=== PATIENT | male | born 1950 | race Caucasian/White ===

== ENCOUNTER 2020-02-19 20:23 | Inpatient (IN) | payer MEDICARE, OTHER ==
[2020-02-19] MEDS ORDERED: Lidocaine 2% HCl 11 ML Jelly Filled Syringe MUCMEM ONE (20:31)
--- NOTE | 2020-02-19 20:37 | EDM.PDOC ---
ED HPI GENERAL MEDICAL PROBLEM - General Stated Complaint: POST SURG ISSUE Time Seen by Provider: 02/19/20 20:34 Source of Information: Reports: Patient History Limitations: Reports: No Limitations - History of Present Illness INITIAL COMMENTS - FREE TEXT/NARRATIVE: Patient comes emergency department today with his with concerns of urinary retention. The patient was discharged from [facility] today following a bladder procedure that he had done yesterday that he relates was a bladder scraping due to hematuria. He left about noon today when they pulled out his catheter but still had blood in his Cardozo. He has not urinated since that time. He has had increasing pain and pressure and he is not even have any dribble of urination. He has no fever or chills. No other abdominal pain other than suprapubic pressure and spasms. He did get seen in the clinic this afternoon and had a scan that showed about 175 mils he was told to go home drink more fluid. That was about 4 or 5:00. He has had 40 ounces of water since that time and he has been unable to void and is pressure keeps getting worse. - Related Data Allergies Allergy/AdvReac Type Severity Reaction Status Date / Time No Known Allergies Allergy Verified 10/22/18 10:58 Home Meds: Home Meds Lisinopril/Hydrochlorothiazide [Zestoretic 10-12.5 mg Tablet] 1 each PO DAILY [History] Oxybutynin Chloride [Ditropan Xl] 10 mg PO DAILY 10/22/18 [History] metroNIDAZOLE/Skin Cleansr #23 [[place] 0.75% Cream] 1 applic TOP BID 10/22/18 [ History] Past Medical History Cardiovascular History: Reports: Hypertension Gastrointestinal History: Reports: Colon Polyp Genitourinary History: Reports: Prostate Disorder Oncologic (Cancer) History: Reports: Prostate Dermatologic History: Reports: Other (See Below) Other Dermatologic History: [place] - Past Surgical History GI Surgical History: Reports: Colonoscopy, Hernia Repair/Other Other GI Surgeries/Procedures: Tubulovillous adenoma of colon. Right inguinal hernia Male Surgical History: Reports: Prostate Biopsy ED ROS GENERAL - Review of Systems Review Of Systems: Comprehensive ROS is negative, except as noted in HPI. ED EXAM, RENAL/ - Physical Exam Exam: See Below Exam Limited By: No Limitations General Appearance: Alert, WD/WN, Mild Distress Respiratory/Chest: No Respiratory Distress Cardiovascular: Normal Peripheral Pulses, Regular Rate, Rhythm GI/Abdominal: Normal Bowel Sounds, Soft, Tender (He does have a well-healed midline very old appearing surgical incision. Suprapubic region he has some mild tenderness without guarding or rebound. The rest of the abdomen is soft nontender.) Rectal (Males) Exam: Deferred Back Exam: Normal Inspection Extremities: Normal Inspection, Normal Capillary Refill Neurological: Alert, Oriented, Normal Cognition, Sensory/Motor Deficit Psychiatric: Normal Affect Skin Exam: Warm, Dry, Intact, Normal Color, No Rash Course - Orders/Labs/Meds Orders: Active Orders 24 hr Category Date Time Status Cardozo Catheter Insertion [Insert Urinary Catheter] [OM. Care 02/19/20 20:45 Ordered PC] Q24H Urinary Catheter Assessment [RC] ASDIRECTED Care 02/19/20 20:32 Active Medication Orders Atorvastatin Calcium (Lipitor) 40 mg PO BEDTIME RIGOBERTO Cephalexin (Keflex) 500 mg PO Q6HR RIGOBERTO Non-Formulary Medication (Lisinopril/Hydrochlorothiazide) 1 each PO DAILY RIGOBERTO Labs: Laboratory Tests 02/19/20 02/19/20 02/19/20 Range/Units 22:46 22:46 22:46 WBC 8.0 (4.0-10.0) x10^3/uL RBC 2.37 L (4.5-6.0) x10^6/uL Hgb 8.1 L (14.0-18.0) g/dL Hct 23.7 L (40.0-52.0) % MCV 100.0 H (78.0-93.0) fL MCH 34.2 H (26.0-32.0) pg MCHC 34.2 (32.0-36.0) g/dL RDW Coeff of Fabi 15.6 H (10.0-15.0) % Plt Count 153 (130-400) x10^3/uL Neut % (Auto) 84.1 H (50.0-80.0) % Lymph % (Auto) 6.9 L (25.0-50.0) % [place] % (Auto) 8.4 (2.0-11.0) % Eos % (Auto) 0.3 (0.0-4.0) % Baso % (Auto) 0.3 (0.2-1.2) % PT 10.1 (10.0-12.8) SEC INR 0.9 L (2.0-3.5) APTT 21.2 L (24.0-36.0) SEC Sodium 136 (136-145) mmol/L Potassium 3.3 L (3.5-5.1) mmol/L Chloride 97 L (98-107) mmol/L Carbon Dioxide 30 (21-32) mmol/L Anion Gap 12.3 (10-20) mmol/L BUN 8 (7-18) mg/dL Creatinine 0.9 (0.70-1.30) mg/dL Est Cr Clr Drug Dosing TNP Estimated GFR (MDRD) > 60 Glucose 125 H (74-106) mg/dL Calcium 8.4 L (8.5-10.1) mg/dL Meds: Medications Generic Name Dose Route Start Last Admin Trade Name Freq PRN Reason Stop Dose Admin Atorvastatin Calcium 40 mg 02/20/20 20:00 Lipitor PO BEDTIME RIGOBERTO Cephalexin 500 mg 02/20/20 00:45 Keflex PO Q6HR RIGOBERTO Non-Formulary Medication 1 each 02/20/20 08:00 Lisinopril/Hydrochlorothiazide PO DAILY RIGOBERTO Discontinued Medications Generic Name Dose Route Start Last Admin Trade Name Freq PRN Reason Stop Dose Admin Lidocaine HCl 11 ml 02/19/20 20:31 Lidocaine Hcl 2% MUCMEM 02/19/20 20:32 ONETIME ONE - Re-Assessments/Exams Free Text/Narrative Re-Assessment/Exam: 02/19/20 20:36 Bladder scan at the bedside shows about 300 mils. Which is just minimally above the typical urge to urinate. Although he has increasing pain and pressure. He has concerns for clots due to his history. We will place a three-way Cardozo catheter for relief and see what returns. He is comfortable with this plan. 02/20/20 00:46 The patient did have quite a bit of clots after the three-way Cardozo was placed. Did need to manually irrigate and evacuate clots. He tolerated this procedure quite well. He continued to have a small amount of bleeding within the return of the Cardozo. I was able to connect the three-way to some continuous bladder irrigation with normal saline. His hemoglobin is 8.1 is down from 11.1 just presurgery on 02-18-20. He is not currently on any anticoagulation. He does have quite a bit of relief and feels much better. Call and speak with Dr. Díaz who is parks recreation director for Urology at [facility]. HPI ER COURSE findings and concerns were relayed to him. He is okay with observation here tonight with continuous bladder irrigation and pull the cardozo catheter in the morning if the blood as stopped. If any problems contact Dr. Díaz through the night. We will admit him under my service here at [facility] and titrate his bladder irrigation during the night slowly down. Closely observing his bleeding. Repeat a CBC in the morning and if all is well his Hgb is stable and the bleeding has stopped we will pull the cardozo and discharge him home. The care of this patient will be transfered to Oj Mcfarlane PA-C in the morning for discharge hopefully this morning. Departure - Departure Time of Disposition: 00:15 Disposition: Refer to Observation Clinical Impression: Clot retention of urine Anemia Qualifiers: Anemia type: unspecified type Qualified Code(s): D64.9 - Anemia, unspecified - Discharge Information Sepsis Event Note - Focused Exam Date Exam was Performed: 02/20/20 Time Exam was Performed: 00:46 - Problem List Review Problem List Initiated/Reviewed/Updated: Yes - My Orders Last 24 Hours: My Active Orders 02/19/20 20:32 Urinary Catheter Assessment [RC] ASDIRECTED 02/19/20 20:45 Cardozo Catheter Insertion [Insert Urinary Catheter] [OM.PC] Q24H - Assessment/Plan Admission H&P: Please use this note as an admission H&P Last 24 Hours: My Active Orders 02/19/20 20:32 Urinary Catheter Assessment [RC] ASDIRECTED 02/19/20 20:45 Cardozo Catheter Insertion [Insert Urinary Catheter] [OM.PC] Q24H Assessment:: A/P 1. Clot retention of urine SP cystoscopy and fulguration/resection of radiation cystitis 02/18/20- Continuous bladder irrigation during the night. Slowly titrate down. Pull cardozo and discharge in the morning home if bleeding has resolved. Contact Dr. Díaz if any concerns. 2. Anemia-post surg, recheck CBC in the am. No anti-coagulation. Hgb 8.1 today, 11.1 02/18/20 Care transferred to Oj Laguna PA-C in the morning.
[2020-02-19 23:09] LABS: ANION GAP 12.3 mmol/L (10-20); CHLORIDE,CL 97 mmol/L (98-107); SODIUM,NA 136 mmol/L (136-145)
[2020-02-19 23:27] LABS: PTT,PARTIAL THROMBOPLSTIN TIME 21.2 SEC (24.0-36.0)
[2020-02-20] MEDS: Cephalexin 500 MG Cap PO SCH ×4 (00:56→17:07)
[2020-02-20] MEDS: Lisinopril 10 MG Tab PO SCH (07:35)
[2020-02-20] MEDS: Hydrochlorothiazide 12.5 MG Cap PO SCH (07:35)
[2020-02-20] MEDS ORDERED: Acetaminophen/HYDROcodone 325-5 MG Tab PO ONE (15:00)
[2020-02-20] MEDS ORDERED: Acetaminophen/HYDROcodone 325-10 MG Tab PO PRN (15:27)
[2020-02-20] MEDS ORDERED: HYDROmorphone 1 MG/ML Syringe IVPUSH PRN (18:28)
[2020-02-20] MEDS: atorvaSTATin 40 MG Tab PO SCH (19:40)
--- NOTE | 2020-02-21 00:13 | PCM.PN ---
- General Info Date of Service: 02/21/20 Subjective Update: Pt. has been continuing to pass copious amount of blood clots throughout the night and this AM. He was transfused for 2 units of blood. He states that overall he is feeling well. He is requiring continuous bladder irrigation via gravity and occasionally with use of a syringe to assist with keeping the catheter patent. He denies any fever or chills. Denies any chest pain or shortness of breath. He states that his appetite has been good. Functional Status: Reports: Pain Controlled - Review of Systems General: Reports: No Symptoms HEENT: Reports: No Symptoms Pulmonary: Reports: No Symptoms Cardiovascular: Reports: No Symptoms Gastrointestinal: Reports: No Symptoms Genitourinary: Reports: Hematuria Musculoskeletal: Reports: No Symptoms Skin: Reports: No Symptoms Neurological: Reports: No Symptoms Psychiatric: Reports: No Symptoms - Patient Data Vitals - Most Recent: Last Vital Signs Temp 37.4 C 02/20/20 22:00 Pulse 88 02/20/20 22:00 Resp 18 02/20/20 22:00 BP 95/58 L 02/20/20 22:00 Pulse Ox 94 L 02/20/20 22:00 Weight - Most Recent: 92.986 kg I&O - Last 24 Hours: Intake & Output 02/20/20 02/20/20 02/21/20 14:59 22:59 06:59 Intake Total 2900 520 Output Total 1325 500 Balance 1575 20 Lab Results Last 24 Hours: Laboratory Results - last 24 hr 02/20/20 02/20/20 Range/Units 06:16 06:16 WBC 6.2 (4.0-10.0) x10^3/uL RBC 2.10 L (4.5-6.0) x10^6/uL Hgb 7.0 L (14.0-18.0) g/dL Hct 21.3 L (40.0-52.0) % MCV 101.4 H (78.0-93.0) fL MCH 33.3 H (26.0-32.0) pg MCHC 32.9 (32.0-36.0) g/dL RDW Coeff of Fabi 15.7 H (10.0-15.0) % Plt Count 160 (130-400) x10^3/uL Neut % (Auto) 75.9 (50.0-80.0) % Lymph % (Auto) 13.2 L (25.0-50.0) % [place] % (Auto) 9.1 (2.0-11.0) % Eos % (Auto) 1.3 (0.0-4.0) % Baso % (Auto) 0.5 (0.2-1.2) % Blood Type AB POSITIVE Gel Antibody Screen Negative Crossmatch See Detail Med Orders - Current: Current Medications Hydrocodone Bitart/Acetaminophen ([place] 325-10 Mg) 1 tab PO Q4H PRN PRN Reason: Pain Atorvastatin Calcium (Lipitor) 40 mg PO BEDTIME [facility] Last Admin: 02/20/20 19:40 Dose: 40 mg Cephalexin (Keflex) 500 mg PO Q6HR [facility] Last Admin: 02/20/20 17:07 Dose: 500 mg Hydrochlorothiazide (Hydrochlorothiazide) 12.5 mg PO DAILY [facility] Last Admin: 02/20/20 07:35 Dose: 12.5 mg Hydromorphone HCl (Dilaudid) 1 mg IVPUSH Q4H PRN PRN Reason: Pain Lisinopril (Prinivil) 10 mg PO DAILY [facility] Last Admin: 02/20/20 07:35 Dose: 10 mg Discontinued Medications Hydrocodone Bitart/Acetaminophen ([place] 325-5 Mg) 1 tab PO ONETIME ONE Stop: 02/20/20 15:01 Last Admin: 02/20/20 15:37 Dose: 1 tab Lidocaine HCl (Lidocaine Hcl 2%) 11 ml MUCMEM ONETIME ONE Stop: 02/19/20 20:32 Last Admin: 02/19/20 20:45 Dose: 11 ml - Exam General: Alert, Oriented Lungs: Clear to Auscultation, Normal Respiratory Effort Cardiovascular: Regular Rate, Regular Rhythm GI/Abdominal Exam: Normal Bowel Sounds, Soft, Non-Tender, No Organomegaly, No Distention, No Mass (Male) Exam: Deferred Back Exam: Normal Inspection, Full Range of Motion Extremities: Normal Inspection, Normal Range of Motion, Non-Tender, No Pedal Edema, Normal Capillary Refill Skin: Warm, Dry, Intact Psy/Mental Status: Alert, Normal Affect, Normal Mood Sepsis Event Note - Evaluation Sepsis Screening Result: No Definite Risk - Focused Exam Vital Signs: Vital Signs Temp Temp Pulse Resp BP Pulse Ox 02/20/20 22:00 37.4 C 88 18 95/58 L 94 L 02/20/20 18:00 37.0 C 68 16 110/59 L 98 02/20/20 14:38 36.7 C 86 16 136/66 02/20/20 14:00 37.1 C 84 16 140/66 98 02/20/20 13:18 37.1 C 84 16 140/66 02/20/20 12:45 37.6 C 84 16 121/55 L 02/20/20 12:27 36.9 C 84 16 110/55 L 02/20/20 12:15 36.9 C 16 107/54 L Date Exam was Performed: 02/21/20 Time Exam was Performed: 00:06 - Problem List Review Problem List Initiated/Reviewed/Updated: Yes - My Orders Last 24 Hours: My Active Orders 02/20/20 15:27 Acetaminophen/HYDROcodone [[place] 325-10 MG] 1 tab PO Q4H PRN 02/20/20 15:28 Bladder Scan [RC] ASDIRECTED 02/20/20 18:28 HYDROmorphone [Dilaudid] 1 mg IVPUSH Q4H PRN 02/20/20 18:29 Urinary Catheter Assessment [RC] ASDIRECTED 02/20/20 18:30 Insert Cardozo Catheter [Insert Urinary Catheter] [OM.PC] Q24H 02/21/20 05:11 BASIC METABOLIC PANEL,BMP [CHEM] AM CBC WITH AUTO DIFF [HEME] AM INR,PT,PROTHROMBIN TIME [COAG] AM - Plan Plan:: Pt. will stay admitted observation until he is able to void freely. His catheter is plugging and had to be replaced. It was replaced with a larger 3 way cardozo with continuous irrigation with normal saline. Will repeat chemistry, CBC, and coags in the AM. Anticipate discharge tomorrow. Urology was consulted twice by Gerard REED just prior to shift change and they assisted with plan of care.
[2020-02-21] MEDS: Cephalexin 500 MG Cap PO SCH ×5 (00:15→23:38)
[2020-02-21] MEDS: Lisinopril 10 MG Tab PO SCH (07:32)
[2020-02-21] MEDS: Hydrochlorothiazide 12.5 MG Cap PO SCH (07:32)
[2020-02-21 07:47] LABS: CHLORIDE,CL 101 mmol/L (98-107); SODIUM,NA 138 mmol/L (136-145)
[2020-02-21 07:48] LABS: ANION GAP 8.1 mmol/L (10-20)
--- NOTE | 2020-02-21 13:27 | PCM.PN ---
- General Info Date of Service: 02/21/20 Subjective Update: 69 yo male on hospital day #3 admitted with gross hematuria. This is in the setting of having had cystoscopy with bladder irrigation, fulguration of bleeding points, and transurethral resection of a bladder tumor on 02/17. He has been requiring continuous bladder irrigation. His catheter was removed due to becoming obstructed last evening. Although he was able to void, this was challenging due to blood clots and he quickly developed urinary retention and pain again. Thus, a new catheter was placed. Given he is approaching 48 hours of admission and it is not anticipated he will be prepared for d/c today, I was contacted to transition him from observation status to acute status. The patient states that he feels well apart from the issues with his bladder. He notes that the continuous irrigation is working well. As long as this continues, he denies any pain. When this has been held, he states he will develop pain and increased clots. He was having some lightheadedness yesterday prior to his transfusion but that is improved. No current lightheadedness, chest pain, or shortness of breath. He has not had any fever. - Review of Systems General: Reports: No Symptoms HEENT: Reports: No Symptoms Pulmonary: Reports: No Symptoms Cardiovascular: Reports: No Symptoms Gastrointestinal: Reports: No Symptoms Genitourinary: Reports: Hematuria Musculoskeletal: Reports: No Symptoms Skin: Reports: No Symptoms Neurological: Reports: No Symptoms - Patient Data Vitals - Most Recent: Last Vital Signs Temp 36.7 C 02/21/20 10:00 Pulse 82 02/21/20 10:00 Resp 16 02/21/20 10:00 BP 107/58 L 02/21/20 10:00 Pulse Ox 98 02/21/20 10:00 Weight - Most Recent: 92.986 kg I&O - Last 24 Hours: Intake & Output 02/20/20 02/21/20 02/21/20 22:59 06:59 14:59 Intake Total 520 300 Output Total 025 226 3429 Balance 20 -600 -2250 Lab Results Last 24 Hours: Laboratory Results - last 24 hr 02/20/20 02/21/20 02/21/20 Range/Units 06:16 07:20 07:20 WBC 5.6 (4.0-10.0) x10^3/uL RBC 2.67 L (4.5-6.0) x10^6/uL Hgb 8.5 L D (14.0-18.0) g/dL Hct 25.4 L (40.0-52.0) % MCV 95.1 H D (78.0-93.0) fL MCH 31.8 (26.0-32.0) pg MCHC 33.5 (32.0-36.0) g/dL RDW Coeff of Fabi 17.6 H (10.0-15.0) % Plt Count 168 (130-400) x10^3/uL Neut % (Auto) 71.5 (50.0-80.0) % Lymph % (Auto) 13.2 L (25.0-50.0) % [place] % (Auto) 11.0 (2.0-11.0) % Eos % (Auto) 3.6 (0.0-4.0) % Baso % (Auto) 0.7 (0.2-1.2) % PT 10.2 (10.0-12.8) SEC INR 0.9 L (2.0-3.5) Sodium (136-145) mmol/L Potassium (3.5-5.1) mmol/L Chloride (98-107) mmol/L Carbon Dioxide (21-32) mmol/L Anion Gap (10-20) mmol/L BUN (7-18) mg/dL Creatinine (0.70-1.30) mg/dL Est Cr Clr Drug Dosing mL/min Estimated GFR (MDRD) Glucose (74-106) mg/dL Calcium (8.5-10.1) mg/dL Crossmatch See Detail 02/21/20 Range/Units 07:20 WBC (4.0-10.0) x10^3/uL RBC (4.5-6.0) x10^6/uL Hgb (14.0-18.0) g/dL Hct (40.0-52.0) % MCV (78.0-93.0) fL MCH (26.0-32.0) pg MCHC (32.0-36.0) g/dL RDW Coeff of Fabi (10.0-15.0) % Plt Count (130-400) x10^3/uL Neut % (Auto) (50.0-80.0) % Lymph % (Auto) (25.0-50.0) % [place] % (Auto) (2.0-11.0) % Eos % (Auto) (0.0-4.0) % Baso % (Auto) (0.2-1.2) % PT (10.0-12.8) SEC INR (2.0-3.5) Sodium 138 (136-145) mmol/L Potassium 3.1 L (3.5-5.1) mmol/L Chloride 101 (98-107) mmol/L Carbon Dioxide 32 (21-32) mmol/L Anion Gap 8.1 L (10-20) mmol/L BUN 6 L (7-18) mg/dL Creatinine 0.8 (0.70-1.30) mg/dL Est Cr Clr Drug Dosing 84.31 mL/min Estimated GFR (MDRD) > 60 Glucose 100 (74-106) mg/dL Calcium 8.5 (8.5-10.1) mg/dL Crossmatch Med Orders - Current: Current Medications Hydrocodone Bitart/Acetaminophen ([place] 325-10 Mg) 1 tab PO Q4H PRN PRN Reason: Pain Atorvastatin Calcium (Lipitor) 40 mg PO BEDTIME [facility] Last Admin: 02/20/20 19:40 Dose: 40 mg Cephalexin (Keflex) 500 mg PO Q6HR [facility] Last Admin: 02/21/20 11:34 Dose: 500 mg Hydrochlorothiazide (Hydrochlorothiazide) 12.5 mg PO DAILY [facility] Last Admin: 02/21/20 07:32 Dose: 12.5 mg Lisinopril (Prinivil) 10 mg PO DAILY [facility] Last Admin: 02/21/20 07:32 Dose: 10 mg Discontinued Medications Hydrocodone Bitart/Acetaminophen ([place] 325-5 Mg) 1 tab PO ONETIME ONE Stop: 02/20/20 15:01 Last Admin: 02/20/20 15:37 Dose: 1 tab Hydromorphone HCl (Dilaudid) 1 mg IVPUSH Q4H PRN PRN Reason: Pain Lidocaine HCl (Lidocaine Hcl 2%) 11 ml MUCMEM ONETIME ONE Stop: 02/19/20 20:32 Last Admin: 02/19/20 20:45 Dose: 11 ml - Exam General: Alert, Oriented, Cooperative, No Acute Distress HEENT: Mucous Membr. Moist/[place] Neck: Supple, Trachea Midline, No Thyromegaly. No: Lymphadenopathy Lungs: Clear to Auscultation, Normal Respiratory Effort Cardiovascular: Regular Rate, Regular Rhythm, No Murmurs GI/Abdominal Exam: Normal Bowel Sounds, Soft, Non-Tender, No Organomegaly, No Distention, No Mass (Male) Exam: Other (urine in catheter tubing is swift red with some small clots visualized) Extremities: No Pedal Edema, Normal Capillary Refill Peripheral Pulses: 2+: Radial (L), Radial (R) Skin: Warm, Dry, Intact Sepsis Event Note - Evaluation Sepsis Screening Result: No Definite Risk - Focused Exam Vital Signs: Vital Signs Temp Temp Pulse Resp BP BP Pulse Ox 02/21/20 10:00 36.7 C 82 16 107/58 L 98 02/21/20 07:32 125/76 02/21/20 05:55 36.9 C 87 18 123/69 96 02/21/20 02:00 36.6 C 84 16 146/53 H 96 Date Exam was Performed: 02/21/20 Time Exam was Performed: 13:27 - Problem List & Annotations (1) Gross hematuria SNOMED Code(s): 116500813 Code(s): R31.0 - GROSS HEMATURIA Status: Acute Current Visit: Yes (2) Urinary retention SNOMED Code(s): 811733224 Code(s): R33.9 - RETENTION OF URINE, UNSPECIFIED Status: Acute Current Visit: Yes (3) Prostate cancer SNOMED Code(s): 585576764 Code(s): C61 - MALIGNANT NEOPLASM OF PROSTATE Status: Chronic Current Visit: Yes (4) Anemia SNOMED Code(s): 939952387 Code(s): D64.9 - ANEMIA, UNSPECIFIED Status: Acute Current Visit: Yes Qualifiers: Anemia type: unspecified type Qualified Code(s): D64.9 - Anemia, unspecified (5) Hypertension SNOMED Code(s): 24899016 Code(s): I10 - ESSENTIAL (PRIMARY) HYPERTENSION Status: Chronic Current Visit: Yes Qualifiers: Hypertension type: essential hypertension Qualified Code(s): I10 - Essential (primary) hypertension (6) Elevated coronary artery calcium score SNOMED Code(s): 666159447, 666847081, [id number], 870058856 Code(s): R93.1 - ABNORMAL FINDINGS ON DX IMAGING OF HEART AND COR CIRC Status: Chronic Current Visit: Yes - Problem List Review Problem List Initiated/Reviewed/Updated: Yes - Assessment Assessment:: 69 yo male hospital day #3 admitted with gross hematuria that did result in Hgb drop requiring blood transfusion 2 units PRBC's on 02/19. Hematuria is clearing; Hgb improved today. - Plan Plan:: #1 Gross Hematuria #2 Urinary retention secondary to clots #3 Prostate cancer - Urology was previously consulted over the phone and agreed with plan in place currently. - I will message his primary urologist so they are aware he remains admitted. - Will continue to wean irrigation as able. - Will d/c urinary catheter once irrigations are no longer needed. #4 Anemia - Recheck CBC tomorrow. #5 Hypertension #6 Elevated coronary artery calcium score - Continue home medications. Patient will transition from observation to acute today as it is anticipated he will require another 2 midnights of hospitalization prior to being prepared for discharge home. No change to current management plan. Recheck labs in the am. Patient is full code. No pharmacologic VTE prophylaxis ordered as he is actively bleeding and is s/p transfusion just yesterday.
--- NOTE | 2020-02-21 13:44 | PCM.SN ---
- Free Text/Narrative Note: Patient was admitted to the hospital on night and has remained in observation status since then. Patient has been unable to return home at this time due to continued and ongoing hematuria with blood clots resulting in painful and obstructed output at times. Patient has required continuous irrigation yesterday. He has been able to extend irrigation to every 2-3 hours today. However, the patient does not feel comfortable going home and completing irrigation as necessary. Patient VSS, urine output adequate and documented within the EHR. Nursing staff deny any concerns. Dr. Luz was contacted regarding transitioning the patient from observation status to inpatient status for continued care throughout the weekend. The patient would feel more comfortable remaining in the hospital related to complications. Urology was contacted yesterday with no further recommendations or interventions at this time per AM report from Oj Gomes. Dr. Luz is agreeable to transitioning the patient from observation to acute care inpatient status. Dr. Luz will be complete rounds today. Patient and family were updated regarding the plan of care. All questions and concerns were addressed with the patient.
[2020-02-21] MEDS: atorvaSTATin 40 MG Tab PO SCH (19:17)
[2020-02-22] MEDS: Cephalexin 500 MG Cap PO SCH ×2 (06:05→11:14)
[2020-02-22] MEDS: Hydrochlorothiazide 12.5 MG Cap PO SCH (07:34)
[2020-02-22] MEDS: Lisinopril 10 MG Tab PO SCH (07:34)
--- NOTE | 2020-02-22 08:43 | PCM.DCSUM1 ---
Discharge Summary - Hospital Course Brief History: Mr. Leal is a 69 yo male admitted for gross hematuria and retention secondary to clots after presenting to the ER upon discharge home from [place]. - Discharge Data Discharge Date: 02/22/20 Discharge Disposition: Home, Self-Care 01 Condition: Stable - Referral to Home Health Primary Care Physician: Marlon Maurer MD - Discharge Diagnosis/Problem(s) (1) Gross hematuria SNOMED Code(s): 409975525 ICD Code: R31.0 - GROSS HEMATURIA Status: Acute Current Visit: Yes (2) Urinary retention SNOMED Code(s): 012298354 ICD Code: R33.9 - RETENTION OF URINE, UNSPECIFIED Status: Acute Current Visit: Yes (3) Prostate cancer SNOMED Code(s): 772511192 ICD Code: C61 - MALIGNANT NEOPLASM OF PROSTATE Status: Chronic Current Visit: Yes (4) Anemia SNOMED Code(s): 211995187 ICD Code: D64.9 - ANEMIA, UNSPECIFIED Status: Acute Current Visit: Yes Qualifiers: Anemia type: unspecified type Qualified Code(s): D64.9 - Anemia, unspecified (5) Hypertension SNOMED Code(s): 12051001 ICD Code: I10 - ESSENTIAL (PRIMARY) HYPERTENSION Status: Chronic Current Visit: Yes Qualifiers: Hypertension type: essential hypertension Qualified Code(s): I10 - Essential (primary) hypertension (6) Elevated coronary artery calcium score SNOMED Code(s): 578799984, 791213254, 602671537, 806383767 ICD Code: R93.1 - ABNORMAL FINDINGS ON DX IMAGING OF HEART AND COR CIRC Status: Chronic Current Visit: Yes - Patient Summary/Data Operative Procedure(s) Performed: none Complications: none Consults: none Labs Pending at D/C: none Recommended Follow-up Testing/Procedures: none Planned Operative Procedure(s) after DC: none Hospital Course: A urinary catheter was placed in the ER and the patient was started on bladder irrigation. Urology was consulted and recommended admission locally for the same. Therefore, he was admitted and bladder irrigation was continued. He continues to pass large clots and swift red urine. On 02/19, his catheter became occluded and had to be removed. He was subsequently unable to void and a new catheter was inserted. That catheter then became occluded last evening and had to be removed. He subsequently passed multiple blood clots and has since been able to void without issue. His urine is still swift red and he is passing small clots; however, he states that this is actually better than what his baseline has been over the past 6 months. He has mild tenderness with voiding that he feels is expected for the situation. His hemoglobin did drop to 7 and he was transfused 2 units PRBC's on 02/19. His hospitalization was otherwise uncomplicated apart from constipation, which he expects will resolve once he is home in his normal routine. His urologist is aware of the hospitalization. He will also follow-up with his PCP in 7-10 days. - Patient Instructions Diet: Usual Diet as Tolerated Activity: As Tolerated Driving: May Drive Today Showering/Bathing: May Shower Notify Provider of: Fever, Increased Pain, Swelling and Redness, Drainage, Nausea and/or Vomiting - Discharge Plan *PRESCRIPTION DRUG MONITORING PROGRAM REVIEWED*: No *COPY OF PRESCRIPTION DRUG MONITORING REPORT IN PATIENT DAVEY: No Home Medications: Home Meds Lisinopril/Hydrochlorothiazide [Zestoretic 10-12.5 mg Tablet] 1 each PO DAILY [History] metroNIDAZOLE/Skin Cleansr #23 [[place] 0.75% Cream] 1 applic TOP BID 10/22/18 [ History] Cephalexin [Keflex] 500 mg PO BID 02/20/20 [History] atorvaSTATin [Lipitor] 40 mg PO BEDTIME 02/20/20 [History] Forms: ED Department Discharge Referrals: Marlon Maurer MD [Primary Care Provider] - 03/02/20 - Discharge Summary/Plan Comment DC Time >30 min.: No - General Info Date of Service: 02/22/20 Subjective Update: 69 yo male hospital day #4 admitted with hematuria. Catheter became occluded last evening and had to be removed. He then passed multiple clots and has voided without issue since. Still has small clots and swift red urine but he states this is currently better than his baseline. Some "tenderness" with voiding but he feels this is appropriate for the situation. No significant dysuria, fever, or chills. His appetite is improved today. He still has not had a BM but is passing gas without any issues. - Review of Systems General: Reports: No Symptoms HEENT: Reports: No Symptoms Pulmonary: Reports: No Symptoms Cardiovascular: Reports: No Symptoms Gastrointestinal: Reports: Constipation Genitourinary: Reports: Hematuria Musculoskeletal: Reports: No Symptoms Skin: Reports: No Symptoms Neurological: Reports: No Symptoms - Patient Data Vitals - Most Recent: Last Vital Signs Temp 36.7 C 02/22/20 06:00 Pulse 74 02/22/20 06:00 Resp 15 02/22/20 06:00 BP 109/61 02/22/20 07:34 Pulse Ox 98 02/22/20 06:00 Weight - Most Recent: 92.986 kg I&O - Last 24 hours: Intake & Output 02/21/20 02/22/20 02/22/20 22:59 06:59 14:59 Intake Total 800 Output Total 675 5290 Balance -675 -850 Lab Results - Last 24 hrs: Laboratory Results - last 24 hr 02/22/20 Range/Units 07:19 WBC 4.9 (4.0-10.0) x10^3/uL RBC 2.68 L (4.5-6.0) x10^6/uL Hgb 8.6 L (14.0-18.0) g/dL Hct 25.6 L (40.0-52.0) % MCV 95.5 H (78.0-93.0) fL MCH 32.1 H (26.0-32.0) pg MCHC 33.6 (32.0-36.0) g/dL RDW Coeff of Fabi 16.2 H (10.0-15.0) % Plt Count 219 (130-400) x10^3/uL Neut % (Auto) 65.2 (50.0-80.0) % Lymph % (Auto) 16.1 L (25.0-50.0) % [place] % (Auto) 12.0 H (2.0-11.0) % Eos % (Auto) 5.9 H (0.0-4.0) % Baso % (Auto) 0.8 (0.2-1.2) % Med Orders - Current: Current Medications Hydrocodone Bitart/Acetaminophen ([place] 325-10 Mg) 1 tab PO Q4H PRN PRN Reason: Pain Atorvastatin Calcium (Lipitor) 40 mg PO BEDTIME RIGOBERTO Last Admin: 02/21/20 19:17 Dose: 40 mg Cephalexin (Keflex) 500 mg PO Q6HR [facility] Last Admin: 02/22/20 06:05 Dose: 500 mg Hydrochlorothiazide (Hydrochlorothiazide) 12.5 mg PO DAILY [facility] Last Admin: 02/22/20 07:34 Dose: 12.5 mg Lisinopril (Prinivil) 10 mg PO DAILY [facility] Last Admin: 02/22/20 07:34 Dose: 10 mg Discontinued Medications Hydrocodone Bitart/Acetaminophen ([place] 325-5 Mg) 1 tab PO ONETIME ONE Stop: 02/20/20 15:01 Last Admin: 02/20/20 15:37 Dose: 1 tab Hydromorphone HCl (Dilaudid) 1 mg IVPUSH Q4H PRN PRN Reason: Pain Lidocaine HCl (Lidocaine Hcl 2%) 11 ml MUCMEM ONETIME ONE Stop: 02/19/20 20:32 Last Admin: 02/19/20 20:45 Dose: 11 ml - Exam General: Reports: Alert, Oriented, Cooperative, No Acute Distress HEENT: Reports: Mucous Membr. Moist/[place] Neck: Reports: Supple, Trachea Midline, No Thyromegaly. Denies: Lymphadenopathy Lungs: Reports: Clear to Auscultation, Normal Respiratory Effort Cardiovascular: Reports: Regular Rate, Regular Rhythm, No Murmurs GI/Abdominal Exam: Normal Bowel Sounds, Soft, Non-Tender, No Organomegaly, No Distention, No Mass Extremities: Non-Tender, No Pedal Edema, Normal Capillary Refill Skin: Reports: Warm, Dry, Intact
== END 2020-02-22 12:10 | disposition home or self-care (01) | DRG 696 ==
LOC: VM.ED 20:23 → VM.MS 02-20 00:20 → OBSVTOIN 02-20 11:38 → INTOOBSV 02-20 11:38 → OBSVTOIN 02-21 11:38 → UNDODISIN 02-22 12:10
PROVIDERS: ADMIT Family Medicine; ATTEND Family Medicine
PROC: 0T2BX0Z Change Drainage Device in Bladder, External Approach (ICD-10-PCS; principal; 2020-02-21)
PROC: 30233N1 Transfusion of Nonautologous Red Blood Cells into Peripheral Vein, Percutaneous Approach (ICD-10-PCS; 2020-02-21)
DX: R31.0 Gross hematuria (principal); R33.9 Retention of urine, unspecified; C61 Malignant neoplasm of prostate; Z86.010 Personal history of colon polyps; N42.9 Disorder of prostate, unspecified; L71.9 Rosacea, unspecified; N32.89 Other specified disorders of bladder; Z98.890 Other specified postprocedural states; Z79.899 Other long term (current) drug therapy; D64.9 Anemia, unspecified; I10 Essential (primary) hypertension; R93.1 Abnormal findings on diagnostic imaging of heart and coronary circulation
CPT/HCPCS: 36415 ×3; 36430; 51702; 51798; 80048 ×2; 85025 ×3; 85610 ×2; 85730; 86850; 86900; 86901; 86920; 86922; 99284; A9270 ×14; P9016 ×2; 99220; G0378

== ENCOUNTER 2021-11-04 06:41 | Day surgery (SDC) | payer MEDICARE, OTHER ==
[2021-11-04] MEDS ORDERED: Lactated Ringers 1,000 ML IV SCH (07:00)
[2021-11-04] MEDS ORDERED: Propofol 200 MG/20 ML SDV ONE ×2 (07:39→08:30)
[2021-11-04] MEDS ORDERED: fentaNYL 100 MCG/2 ML SDV ONE (07:39)
--- NOTE | 2021-11-04 11:24 | OR ---
PREOPERATIVE DIAGNOSIS: History of colon polyps. POSTOPERATIVE DIAGNOSIS: Colon polyps. PROCEDURE PERFORMED: Total flexible colonoscopy with biopsies. ANESTHESIA: MAC anesthesia. COMPLICATIONS: None. BLOOD LOSS: Minimal. FINDINGS: 1. Cecal polyps x2, 2 mm/4 mm, cold forceps and cold snare. 2. Transverse polyp, 3 mm, cold forceps. 3. Sigmoid polyp, 2 mm, cold forceps. Start time 0823, cecum 0827, stop 0841. BOWEL PREP: [place] class 3. INDICATIONS: Mr. Leal is a 70-year-old male who has had a history of polyps over the years. He is here for a colonoscopy. No family history of colon cancer. No bloody stools. DETAILS OF PROCEDURE: Informed consent was obtained. The patient was brought to the procedure room, placed in left lateral decubitus position. MAC anesthesia was used by Anesthesia colleagues without incident. The colonoscope was introduced into the rectum and advanced all the way to the cecum. Appendiceal orifice and ileocecal valve were photographed to confirm advancement to the cecum. The colonoscope was then slowly withdrawn. No pathology was identified except for what is mentioned in the above finding section. A retroflexed view was obtained. The colonoscope was removed. The patient was awoken from anesthesia by Anesthesia colleagues without incident. PATHOLOGY: A) Colon, cecal polyp, polypectomy Tubular adenoma. B) Colon, transverse polyp Tubular adenoma. C) Colon, sigmoid polyp Focal adenomatous change. Recommend repeat colonoscopy in 3 years. RKM: 11/04/2021 08:45:46 MODL: 11/04/2021 10:31:35 /[id number] SPENCER
--- NOTE | 2021-11-15 11:32 | LETTER ---
11/15/2021 Mr. Steven Brooks [address] [place] [id number] RE: STEVEN BROOKS : 1950 Dear Mr. rBooks: I am writing to inform you of the pathology results of your recent colonoscopy. You had 3 adenomatous polyps. These are polyps which do not contain cancer but can become cancer, which is why I removed them. You will need a repeat colonoscopy in 3 years. Warmest regards,
== END 2021-11-04 09:55 | disposition home or self-care (01) ==
LOC: VM.SDS 06:41
PROVIDERS: ATTEND Student in an Organized Health Care Education/Training Program
DX: Z12.11 Encounter for screening for malignant neoplasm of colon (principal); D12.0 Benign neoplasm of cecum; D12.3 Benign neoplasm of transverse colon; D12.5 Benign neoplasm of sigmoid colon; I10 Essential (primary) hypertension; I25.10 Atherosclerotic heart disease of native coronary artery without angina pectoris; L71.9 Rosacea, unspecified; N52.9 Male erectile dysfunction, unspecified; Z98.890 Other specified postprocedural states; Z86.010 Personal history of colon polyps; Z79.899 Other long term (current) drug therapy
CPT/HCPCS: 00811; 88305; J2704; J3010; J7120

== ENCOUNTER 2025-06-04 11:40 | Day surgery (SDC) | payer MEDICARE, BC ==
[~2025-06-04 11:40] MED LIST: Propofol 200 MG/20 ML SDV ONE; fentaNYL 100 MCG/2 ML SDV ONE
[2025-06-04] MEDS: Lactated Ringers 1,000 ML IV SCH (11:57)
[2025-06-04] MEDS ORDERED: Propofol 200 MG/20 ML SDV ONE (13:13)
== END 2025-06-04 14:20 | disposition home or self-care (01) ==
LOC: VM.SDS 11:40
PROVIDERS: ATTEND Family Medicine
DX: Z12.11 Encounter for screening for malignant neoplasm of colon (principal); D12.0 Benign neoplasm of cecum; D12.2 Benign neoplasm of ascending colon; D12.4 Benign neoplasm of descending colon; K64.9 Unspecified hemorrhoids; I10 Essential (primary) hypertension; I25.10 Atherosclerotic heart disease of native coronary artery without angina pectoris; Z86.0101 Personal history of adenomatous and serrated colon polyps; Z83.719 Family history of colon polyps, unspecified; Z79.899 Other long term (current) drug therapy
CPT/HCPCS: 00811; 88305; 99100; J2704; J3010; J7120